=== PATIENT | male | born 1965 | race Caucasian/White ===

== ENCOUNTER 2018-09-27 08:27 | Emergency (ER) | payer OTHER ==
[~2018-09-27] VITALS: Ht 185.4 cm; Wt 90.7 kg
[~2018-09-27 08:27] MED LIST: NOHOMEMEDICATIONS; PREDNISONE 20 M20 M1 PO; VENTOLIN HFA 1818 GM INH; ZPAK PO
[2018-09-27] MEDS ORDERED: NAPROSYN500 MG PO (09:28)
[2018-09-27 09:40] VITALS: BP 128/89
== END 2018-09-27 09:40 | disposition home or self-care (01) ==
LOC: ER 08:27
DX: S49.92XA Unspecified injury of left shoulder and upper arm, initial encounter (principal); W19.XXXA Unspecified fall, initial encounter; Y93.89 Activity, other specified; Y92.89 Other specified places as the place of occurrence of the external cause; Y99.8 Other external cause status; I25.2 Old myocardial infarction